=== PATIENT | female | born 1970 | race Caucasian/White ===

== ENCOUNTER 2019-03-23 18:39 | Emergency (ER) | payer SELFPAY ==
[2019-03-23 19:17] VITALS: BP 142/74
--- NOTE | 2019-03-24 16:08 | UC ---
Eye Complaint HPI - HPI Summary HPI Summary: 48-year-old female who was at work using some cleaning chemicals she does not recall that any cleaning solution actually splashed into her face but she thinks it might have splashed onto her glasses. She had no problems until she went outside and it was a little bit windy and then she states she started experiencing a slight burning feeling in her left eyes so she thought maybe she had some cleaning solution on her glasses and the wind blew it into her eye. She denies any visual change or problems. The patient did flush her eye repeatedly at home and stopped to the drugstore and bought some saline flush and her eye feels much better now. - History of Current Complaint Chief Complaint: UCEye Stated Complaint: LEFT EYE Time Seen by Provider: 03/23/19 19:15 Hx Obtained From: Patient Onset/Duration: Sudden Onset Severity Initially: Mild Severity Currently: None Pain Intensity: 2 Pain Scale Used: 0-10 Numeric Location of Injury: Conjunctiva Aggravating Factor(s): Nothing Alleviating Factor(s): Other Associated Signs And Symptoms: Positive: Negative - Patient flushed her eyes with - Allergies/Home Medications Allergies/Adverse Reactions: Allergies Allergy/AdvReac Type Severity Reaction Status Date / Time No Known Allergies Allergy Verified 03/23/19 19:12 Home Medications: Home Medications NK [No Home Medications Reported] 03/23/19 [History Confirmed 03/23/19] PMH/Surg Hx/FS Hx/Imm Hx Previously Healthy: Yes - Surgical History Surgical History: Yes Surgery Procedure, Year, and Place: tubal. ablation - Social History Alcohol Use: None Substance Use Type: None Smoking Status (MU): Light Every Day Tobacco Smoker Type: Cigarettes Amount Used/How Often: 5 cigarettes daily Review of Systems All Other Systems Reviewed And Are Negative: Yes Eyes: Positive: Eye Redness - Very minimal scleral injection. No drainage. Patient states her eye feels much better now. Is Patient Immunocompromised?: No Physical Exam Triage Information Reviewed: Yes Appearance: Well-Appearing, No Pain Distress, Well-Nourished Vital Signs: Initial Vital Signs Temp 98.7 F 03/23/19 19:08 Pulse 74 03/23/19 19:08 Resp 16 03/23/19 19:08 BP 142/74 03/23/19 19:08 Pulse Ox 98 03/23/19 19:08 Vital Signs Reviewed: Yes Eyes: Positive: Conjunctiva Clear - PERRLA, EOMI, no drainage, minimal scleral injection. Eye Complaint Course/Dx - Course Course Of Treatment: This is a 48-year-old female who thinks there possibly may have been some cleaning material on her glasses when she went outside in the wind and then her left eye started feeling irritated so she stopped and brought some saline flush and flushed successfully. Here in the urgent care she is feeling much better. Her left sclera and conjunctiva are minimally injected however there is no drainage. She has no change in her vision. At this point time I feel she has treated appropriately. She was sent here from work to get this checked. She is not even 100% sure she had any chemical into the eye. She is unable to tell me the name of the cleaning chemicals she was working left. - Differential Dx/Diagnosis Provider Diagnosis: Eye irritation Discharge - Sign-Out/Discharge Documenting (check all that apply): Patient Departure All imaging exams completed and their final reports reviewed: No Studies - Discharge Plan Condition: Good Disposition: HOME Referrals: He Cerda MD [Medical Doctor] - No Primary Care Phys,NOPCP [Primary Care Provider] - Additional Instructions: You can continue flushing her eye if it can tends to bother you however tomorrow but still bothering you need to follow-up with an reproductive surgeon. Dr. Cerda on [facility] usually can see you the same day. - Billing Disposition and Condition Condition: GOOD Disposition: Home
== END 2019-03-23 19:37 | disposition home or self-care (01) ==
LOC: UCCORT 18:39
DX: H57.89 Other specified disorders of eye and adnexa (principal); F17.210 Nicotine dependence, cigarettes, uncomplicated
CPT/HCPCS: 99211; G0463